=== PATIENT | male | born 1940 | race Caucasian/White ===

== ENCOUNTER 2020-01-05 13:07 | Inpatient (IN) ==
[2020-01-05 13:51] LABS: Hematocrit 36.7 % (42.0-52.0); Hemoglobin 12.6 gm/dL (13.5-18.0); Mean Cell Volume 90.6 fl (78-100); Mean Corpuscular Hemoglobin 31.1 pg (27-31); Mean Corpuscular Hgb Conc 34.3 g/dl (32-36); Mean Platelet Volume 9.8 fl (8-11.3); Neutrophil # 3.8 K/mm3 (1.3-6.0); Platelet Count 157 K/mm3 (150-450); Red Blood Count 4.05 M/mm3 (4.7-6.0); Red Cell Distribution Width 13.2 % (11.5-14.0); White Blood Count 6.8 K/mm3 (4.0-10.5)
[2020-01-05 14:03] LABS: Prothrombin Time (Patient) 11.1 Seconds (9.1-10.7)
--- NOTE | 2020-01-05 14:03 | ERNOTE ---
Neuro HPI ER Record Presenting Symptoms: impaired speech Time Seen by Provider: 01/05/20 13:28 Source: family Exam Limitations: clinical condition Immunizations: IMMUNIZATION HX Immunizations Up to Date Yes History of Influenza Vaccine No Hx Pneumococcal Vaccination No Allergies/Adverse Reactions: Allergies Allergy/AdvReac Type Severity Reaction Status Date / Time No Known Allergies Allergy Verified 12/22/19 14:07 Home Medications: HOME MEDICATIONS aspirin 81 mg tablet,delayed release 81 mg PO DAILY 02/18/18 [Last Taken Unknown] blood-glucose meter, drum-type See Dose Instructions .ROUTE .MEDSUPPLY #1 ea 09/17/18 [Last Taken Unknown] atenolol 50 mg tablet 50 mg PO BID #180 tab 07/09/19 [Last Taken Unknown] atorvastatin 40 mg tablet 40 mg PO HS #90 tab 07/09/19 [Last Taken Unknown] blood sugar diagnostic, drum See Dose Instructions .ROUTE .MEDSUPPLY #300 ea 07/09/19 [Last Taken Unknown] donepezil 5 mg tablet 5 mg PO HS #90 tab 07/09/19 [Last Taken Unknown] glimepiride 4 mg tablet 4 mg PO BID #180 tab 07/09/19 [Last Taken Unknown] hydrochlorothiazide 12.5 mg tablet 12.5 mg PO QAM #90 tab 07/09/19 [Last Taken Unknown] losartan 100 mg tablet 100 mg PO HS #90 tab 07/09/19 [Last Taken Unknown] triamcinolone acetonide 0.1 % topical cream 1 applic TP BID #80 g 07/09/19 [Last Taken Unknown] warfarin 4 mg tablet 8 mg PO .COMPLEX #180 tab 07/09/19 [Last Taken Unknown] Durable Medical Equipment See Rx Instructions .ROUTE .MEDSUPPLY #1 ea 07/16/19 [Last Taken Unknown] polyethylene glycol 3350 17 gram/dose oral powder 17 g PO DAILY #255 g 07/30/19 [Last Taken Unknown] metformin 1,000 mg tablet 1,000 mg PO BID #180 tab 08/13/19 [Last Taken Unknown] amlodipine 5 mg tablet 5 mg PO DAILY 08/31/19 [Last Taken Unknown] lancets See Rx Instructions .ROUTE .COMPLEX #100 ea 10/05/19 [Last Taken Unknown] blood sugar diagnostic See Rx Instructions .ROUTE .MEDSUPPLY #50 ea 11/24/19 [Last Taken Unknown] - History of Present Illness Narrative: Patient is coming to the ER for possible stroke. History is obtained from his . She states that he last was in his normal state last night before they went to bed. This morning he got up around 1030 (which is late for him), he was trying to check his blood sugar which is his normal routine and was unable to handle his glucometer, when he tried to write in his book where he usually noted his blood pressure he only gets on some scribbles. He laid down again and when he got up his noticed that his speech was garbled and brought him to the ER by private. She is not aware of any numbness. He has a history of atrial fibrillation, has recently been seen for fatigue and had a stress test done yesterday. Onset: cannot confirm onset - Character of Deficits Additional Deficits: Present: impaired speech Baseline Cognition: Present: alert, oriented x 4 Baseline Gait: Present: walks w/o assistance Associated Symptoms: Denies: fever/chills Prior Treament: Reports: recently seen. Denies: similar symptoms before Review of Systems - Narrative Narrative: Limited by difficulty speaking Medical History (Last Reviewed 01/05/20 @ 18:00 by Lisa Arias MD) Weight loss (Acute) He has lost 10 pounds in the last 11 days. He reports that he is eating fairly good but his says he is not eating well. Weakness (Acute) Fatigue (Acute) Acutely worse at least. Onychomycosis (Chronic) Insomnia (Chronic) Cutaneous candidiasis (Chronic) Constipation due to slow transit (Chronic) History of pneumonia as indication for 23-polyvalent pneumococcal polysaccharide vaccine (Acute) Refused influenza vaccine (Acute) Nausea and vomiting (Acute) Major depression (Chronic) Sleep behavior disorder, REM (Chronic) Alzheimer's dementia, late onset (Chronic) Atrial fibrillation (Chronic) Hypertension (Chronic) Hyperlipidemia due to dietary fat intake (Chronic) Onset Date: Unknown Diabetes mellitus (Chronic) Onset Date: 1995 History of kidney stones Onset Date: Unknown Surgical History: Surgical History (Last Reviewed 01/05/20 @ 18:00 by Lisa Arias MD) Hx of colonoscopy Onset Date: 08/31/162012; Recheck in 10 years. 08/31/[id number] Hx of hernia repair Onset Date: 1989 right inguinal history of kidney stone removal Onset Date: Unknown Family History: Family History (Last Reviewed 01/05/20 @ 13:24 by Princess King RN) Mother , age 77-cancer unknown type Diabetes Cancer unsure of type Brother , age 70's-[place] Diabetes Myocardial infarction Sister , age 60 Diabetes Sister , age 65-lung ca w/mets to brain Cancer lung, brain Brother , age 69-lung Cancer lung Father , age 62-unsure of cause Cancer unknown type-possible lung (had part of lung removed) Alcohol abuse COPD (chronic obstructive pulmonary disease) Brother , as No problems noted. Sister Heart disease Social History: (Last Reviewed 01/05/20 @ 13:24 by Princess King RN) Social History: Marital status: household members: spouse number of children: 3 current occupational status: retired Service: No Tobacco: Smoking Status: Never smoker Alcohol: alcohol intake: former Substance Use: substance use type: does not use Dietary Habits: caffeine: Yes Exercise: Physical activity type: walking Personal Safety: victim of physical abuse: No victim of emotional abuse: No Physical Exam - Physical Exam General Appearance: Present: wd/wn, alert, no apparent distress, anxious Head Exam: Present: normal inspection, no evidence of injury Eye Exam: Normal inspection: bilateral, PERRL: bilateral, EOMI: bilateral Ears, Nose, Throat: Present: normal pharynx Respiratory: Present: no respiratory distress, normal breath sounds, no accessory muscle use, lungs clear Cardiovascular/Chest: Present: regular rate, rhythm, no murmur Gastrointestinal/Abdominal: Present: nontender, nondistended, soft Extremity Exam: Present: no edema Neurological Exam: Present: alert, no motor/sensory deficits, other - 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 Absent: facial droop Skin Exam: Present: normal color, warm/dry [place] Coma Scale - Assess Eye Opening: Spontaneous Motor: Obeys Commands Verbal: Confused - Total Coma Scale Total: 14 Initial Stroke Assessment - NIH Stroke Scale Level of Consciousness: Alert LOC Commands (open/close eyes/fist): Performs one correctly Lateral Gaze Paresis: None Facial Palsy: Normal movement Right Arm Motor (10 sec hold): No drift Left Arm Motor (10 sec hold): No drift Right Leg Motor (5 sec hold): Drift Left Leg Motor (5 sec hold): No drift Sensory Loss (pinprick arms/legs/face): No sensory loss Dysarthria (speech clarity): Normal articulation Progress - Results and Orders Patient's Lab Results:: I have reviewed the patient's lab results. - Vital Signs Patient's Vital Signs:: I have reviewed the patient's vital signs. Vital Signs: Vital Signs 01/05/20 13:18 Temperature 36.6 C Pulse Rate 57 L Respiratory Rate 14 Blood Pressure 166/82 H O2 Sat by Pulse Oximetry 100 - EKG EKG #1 EKG: atrial fibrillation - HR 70, RBBB - incomplete, no ST T wave changes EKG read: Interp. by me - X-Ray X-Ray #1 X-Ray: chest - no acute changes Interpretation: Reviewed by me - CT/Ultrasound CT/Ultrasound Narrative: CT head: subacute stroke - Progress/Reassessment Chief Complaint: Altered Mental Status Progress Note-Subjective: 01/05/20 13:[address] with radiologist 01/05/20 13: [address] results with 01/05/20 14:57 unchanged aphasia discussed results with offered admission here vs transfer to [facility], will discuss with family 01/05/20 15:15 would like patient admitted here 01/05/20 15:[address] Cotton, agrees to admit admit here, would like me to call stroke center fist to make sure they don't have anything else to add 01/05/20 15:35 call to [facility], 01/05/20 15:48 discussed with stroke team, attending Dr Allan, at this point they don't think they have anything to add but will review images and call back 01/05/20 16:47 call to [facility], just receiving images now 01/05/20 17:[address] Allan with the stroke team, as it is a big infarct he doesn't qualify for any studies, no added benefit from transfer, they are happy to help if there are any complications or increased swelling from edema 01/05/20 17:[address] Cotton, okay to admit here Departure Clinical Impression: CVA (cerebral vascular accident) Qualifiers: CVA mechanism: embolism Precerebral and cerebral artery: middle cerebral artery Laterality of affected vessel: left Qualified Code(s): I63.412 - Cerebral infarction due to embolism of left middle cerebral artery - Departure Disposition: Still a patient Condition: Stable
[2020-01-05 14:04] LABS: INR 1.13 INR (0.92-1.08)
[2020-01-05 14:07] LABS: Albumin * 3.8 gm/dl (3.4-5.0); Anion Gap 11.1 mmol/L (6.8-13.8); Bilirubin, Total 0.5 mg/dL (0.0-1.1); Ca. Corrected For Albumin 8.7 mg/dL (8.4-10.2); Calcium * 8.9 mg/dL (7.9-10.9); Carbon Dioxide 26.2 mmol/L (24-32.6); Potassium 4.3 mmol/L (3.4-4.6); Total Protein 7.5 gm/dL (6.2-8.2)
[2020-01-05] MEDS ORDERED: NORMAL SALINE 1,000 ML IV ONE (17:56)
[2020-01-05 19:41] LABS: Hematocrit 36.3 % (42.0-52.0); Hemoglobin 12.5 gm/dL (13.5-18.0); Mean Cell Volume 90.5 fl (78-100); Mean Corpuscular Hemoglobin 31.2 pg (27-31); Mean Corpuscular Hgb Conc 34.4 g/dl (32-36); Mean Platelet Volume 9.8 fl (8-11.3); Neutrophil # 4.2 K/mm3 (1.3-6.0); Neutrophil % 56.2 % (42-75.0); Platelet Count 160 K/mm3 (150-450); Red Blood Count 4.01 M/mm3 (4.7-6.0); Red Cell Distribution Width 13.1 % (11.5-14.0); White Blood Count 7.5 K/mm3 (4.0-10.5)
--- NOTE | 2020-01-05 19:43 | HP ---
Chief Complaint - Chief Complaint Date of Service: 01/05/20 Time of Service: 19:00 Chief Complaint: Acute stroke. Expressive aphasia partial History of Present Illness: Pablo Mustafa is a 79-year-old white male who is well-known to me as a patient I follow in the clinic. He has a longstanding history of type 2 diabetes, essential hypertension, and atrial fibrillation. Recently he has been complaining of extreme fatigue and I have been doing a cardiovascular evaluation on him. He had a 24-hour Holter monitor which shows atrial fibrillation but with pauses of about 2.4 seconds. He also had an episode of ischemia with ST depression that later resolved. He had a nuclear exercise stress test done yesterday. There is no evidence of myocardial ischemia and no filling defects. He also suffers from major depressive disorder. 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 Last night about 11:00 was the last time he was normal. His did not discover the problems until this morning when he was having difficulty speaking and had some staggering in his gait. She brought him to the hospital where he was evaluated in the emergency room. CT shows a fairly large lacunar infarct. He had garbled speech in the ER and it was moving all extremities. He had some mild weakness on the left side. He has been therapeutic on his Coumadin and 2 weeks ago was INR was 2.68. In the emergency room today however it is 1.13. He was also taking a baby aspirin each day. Why is suddenly being subtherapeutic this degree is unknown at this time. On my exam this evening he recognized me and his speech was intelligible and appropriate. I did not ask him to originate any conversation but answers simple questions appropriately. I spent an hour reviewing the research and subtherapeutic strokes and current management therapies. There is a wide diversity of opinion but what seems consistent is that early anticoagulation therapy using low molecular weight heparin or enoxaparin does not decrease the risk of another stroke but it does increase the risk of intracranial hemorrhage. On the other hand in atrial for patient's warfarin is highly recommended early and return to therapeutic levels as soon as possible. He did get 1 dose of 40 mg enoxaparin but I have discontinued it. We will recheck his INR daily. I have orders for physical, occupational, and speech therapy tomorrow. We did contact the stroke team at the [facility] and because of the size of the embolic stroke and already being visible on CT scan it is thought to be 6 to 12 hours and they had nothing else to offer. Interventional neuroradiology and TPA are now contraindicated both because of time and having been anticoagulated on warfarin. He will be admitted and allowed to evolve his stroke. We will do neuro checks frequently. I will start him back on full liquids and if he tolerates that well then progressed to regular food. Medical History (Last Reviewed 01/05/20 @ 18:00 by Lisa Arias MD) Weight loss (Acute) He has lost 10 pounds in the last 11 days. He reports that he is eating fairly good but his says he is not eating well. Weakness (Acute) Fatigue (Acute) Acutely worse at least. Onychomycosis (Chronic) Insomnia (Chronic) Cutaneous candidiasis (Chronic) Constipation due to slow transit (Chronic) History of pneumonia as indication for 23-polyvalent pneumococcal polysaccharide vaccine (Acute) Refused influenza vaccine (Acute) Nausea and vomiting (Acute) Major depression (Chronic) Sleep behavior disorder, REM (Chronic) Alzheimer's dementia, late onset (Chronic) Atrial fibrillation (Chronic) Hypertension (Chronic) Hyperlipidemia due to dietary fat intake (Chronic) Onset Date: Unknown Diabetes mellitus (Chronic) Onset Date: 1995 History of kidney stones Onset Date: Unknown Surgical History: Surgical History (Last Reviewed 01/05/20 @ 18:00 by Lisa Arias MD) Hx of colonoscopy Onset Date: 08/31/162012; Recheck in 10 years. 08/31/[id number] Hx of hernia repair Onset Date: 1989 right inguinal history of kidney stone removal Onset Date: Unknown Family History: Family History (Last Reviewed 01/05/20 @ 13:24 by Princess King RN) Mother , age 77-cancer unknown type Diabetes Cancer unsure of type Brother , age 70's-[place] Diabetes Myocardial infarction Sister , age 60 Diabetes Sister , age 65-lung ca w/mets to brain Cancer lung, brain Brother , age 69-lung Cancer lung Father , age 62-unsure of cause Cancer unknown type-possible lung (had part of lung removed) Alcohol abuse COPD (chronic obstructive pulmonary disease) Brother , as No problems noted. Sister Heart disease Social History: (Last Reviewed 01/05/20 @ 13:24 by Princess King RN) Social History: Marital status: household members: spouse number of children: 3 current occupational status: retired Service: No Tobacco: Smoking Status: Never smoker Alcohol: alcohol intake: former Substance Use: substance use type: does not use Dietary Habits: caffeine: Yes Exercise: Physical activity type: walking Personal Safety: victim of physical abuse: No victim of emotional abuse: No Review Of Systems (GEN) - Review of Systems Generalized/Overall Review: Present: Weakness EENTM: Present: No Symptoms Reported Respiratory: Present: No Symptoms Reported Cardiac: Present: Palpitations Abdominal: Present: No Symptoms Reported Genitourinary: Present: No Symptoms Reported Musculoskeletal: Present: No Symptoms Reported Neurological: Present: Depressed, Emotional Problems, Weakness, Other - Expressive aphasia and strokelike symptoms Skin: Present: No Symptoms Reported Endocrine: Present: No Symptoms Reported Immunizations: IMMUNIZATION HX Immunizations Up to Date Yes History of Influenza Vaccine No Hx Pneumococcal Vaccination No Allergies/Adverse Reactions: Allergies Allergy/AdvReac Type Severity Reaction Status Date / Time No Known Allergies Allergy Verified 12/22/19 14:07 Home Medications: HOME MEDICATIONS aspirin 81 mg tablet,delayed release 81 mg PO DAILY 02/18/18 [Last Taken Unknown] blood-glucose meter, drum-type See Dose Instructions .ROUTE .MEDSUPPLY #1 ea 09/17/18 [Last Taken Unknown] atenolol 50 mg tablet 50 mg PO BID #180 tab 07/09/19 [Last Taken Unknown] atorvastatin 40 mg tablet 40 mg PO HS #90 tab 07/09/19 [Last Taken Unknown] blood sugar diagnostic, drum See Dose Instructions .ROUTE .MEDSUPPLY #300 ea 07/09/19 [Last Taken Unknown] donepezil 5 mg tablet 5 mg PO HS #90 tab 07/09/19 [Last Taken Unknown] glimepiride 4 mg tablet 4 mg PO BID #180 tab 07/09/19 [Last Taken Unknown] hydrochlorothiazide 12.5 mg tablet 12.5 mg PO QAM #90 tab 07/09/19 [Last Taken Unknown] losartan 100 mg tablet 100 mg PO HS #90 tab 07/09/19 [Last Taken Unknown] triamcinolone acetonide 0.1 % topical cream 1 applic TP BID #80 g 07/09/19 [Last Taken Unknown] warfarin 4 mg tablet 8 mg PO .COMPLEX #180 tab 07/09/19 [Last Taken Unknown] Durable Medical Equipment See Rx Instructions .ROUTE .MEDSUPPLY #1 ea 07/16/19 [Last Taken Unknown] polyethylene glycol 3350 17 gram/dose oral powder 17 g PO DAILY #255 g 07/30/19 [Last Taken Unknown] metformin 1,000 mg tablet 1,000 mg PO BID #180 tab 08/13/19 [Last Taken Unknown] amlodipine 5 mg tablet 5 mg PO DAILY 08/31/19 [Last Taken Unknown] lancets See Rx Instructions .ROUTE .COMPLEX #100 ea 10/05/19 [Last Taken Unknown] blood sugar diagnostic See Rx Instructions .ROUTE .MEDSUPPLY #50 ea 11/24/19 [Last Taken Unknown] Exam - Exam Vital Signs: Vital Signs - Last Taken Temp 36.6 C 01/05/20 13:18 Pulse 68 01/05/20 18:00 Resp 16 01/05/20 18:00 BP 155/71 H 01/05/20 18:00 Pulse Ox 96 01/05/20 18:00 Constitutional: Present: Alert, Oriented x3, Cooperative, Well developed, Well nourished, Mild distress, Elderly ENT Exam: Present: normal ENT inspection, hearing grossly normal, pharynx normal, TMs normal Eye Exam: bilateral eye: normal inspection, PERRL, EOMI Neck: Present: non-tender, full range of motion, supple, normal inspection Back Exam: Present: normal inspection, no CVA tenderness, no vertebral tenderness Breasts: Present: Exam deferred Respiratory: Present: chest non-tender, lungs clear, normal breath sounds, no respiratory distress, no accessory muscle use Cardiovascular/Chest: Present: normal peripheral pulses, irregularly irregular Peripheral Pulses: carotid (R): 2+, carotid (L): 2+, radial (R): 2+, radial (L): 2+ Abdomen: Present: Normal bowel sounds, soft, nontender, nondistended, no rebound tenderness, no hepatospenomegaly, no masses /Rectal: Present: Exam deferred Extremity: Present: normal range of motion, non-tender, normal inspection, no pedal edema, no calf tenderness, normal capillary refill Skin Exam: Present: normal color, warm/dry, no cyanosis Lymphatic: Present: no adenopathy 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, normal cerebellar test, no motor/sensory deficits, alert, normal mood/affect, oriented x 3 Appearance: Present: appropriate appearance, appropriate insight, neat, no memory impairment Eye contact: Present: cooperative, good eye contact, normal speech Thoughts: Present: normal thought pattern, no apparent hallucination Diagnostic Studies: Abnormal Lab Results 01/05/20 01/05/20 01/05/20 Range/Units 13:46 13:46 13:46 RBC 4.05 L (4.7-6.0) M/mm3 Hgb 12.6 L (13.5-18.0) gm/dL Hct 36.7 L (42.0-52.0) % MCH 31.1 H (27-31) pg ESR 25 H (0-10) mm/hr PT 11.1 H (9.1-10.7) Seconds INR (Anticoag Therapy) 1.13 H (0.92-1.08) INR BUN (6-23) mg/dL Creatinine (0.4-1.4) mg/dL Est GFR (Non-Af Amer) (60-130) mL/min Random Glucose (70-110) mg/dL 01/05/20 Range/Units 13:46 RBC (4.7-6.0) M/mm3 Hgb (13.5-18.0) gm/dL Hct (42.0-52.0) % MCH (27-31) pg ESR (0-10) mm/hr PT (9.1-10.7) Seconds INR (Anticoag Therapy) (0.92-1.08) INR BUN 27 H (6-23) mg/dL Creatinine 1.50 H (0.4-1.4) mg/dL Est GFR (Non-Af Amer) 48 L (60-130) mL/min Random Glucose 148 H (70-110) mg/dL Laboratory Results WBC 6.8 K/mm3 (4.0-10.5) 01/05/20 13:46 RBC 4.05 M/mm3 (4.7-6.0) L 01/05/20 13:46 Hgb 12.6 gm/dL (13.5-18.0) L 01/05/20 13:46 Hct 36.7 % (42.0-52.0) L 01/05/20 13:46 MCV 90.6 fl (78-100) 01/05/20 13:46 MCH 31.1 pg (27-31) H 01/05/20 13:46 MCHC 34.3 g/dl (32-36) 01/05/20 13:46 RDW 13.2 % (11.5-14.0) 01/05/20 13:46 Plt Count 157 K/mm3 (150-450) 01/05/20 13:46 MPV 9.8 fl (8-11.3) 01/05/20 13:46 Immature Gran % (Auto) 0.10 % (0.001-0.429) 01/05/20 13:46 Immature Gran # (Auto) 0.01 K/mm3 (0.000-0.0310) 01/05/20 13:46 Neutrophils % 55.0 % (42-75.0) 01/05/20 13:46 Lymphocytes % 34.0 % (20-51) 01/05/20 13:46 Monocytes % 8.6 % (0.0-9) 01/05/20 13:46 Eosinophils % 1.6 % (0.0-3.0) 01/05/20 13:46 Basophils % 0.7 % (0.0-1.0) 01/05/20 13:46 Nucleated RBC % 0.0 k/mm3 (0-1) 01/05/20 13:46 Neutrophils # 3.8 K/mm3 (1.3-6.0) 01/05/20 13:46 Lymphocytes # 2.32 k/mm3 (1.5-3.5) 01/05/20 13:46 Monocytes # 0.6 k/mm3 (0.0-1.0) 01/05/20 13:46 Eosinophils # 0.1 k/mm3 (0.0-0.7) 01/05/20 13:46 Absolute Basophils 0.1 k/mm3 (0.0-0.1) 01/05/20 13:46 ESR 25 mm/hr (0-10) H 01/05/20 13:46 PT 11.1 Seconds (9.1-10.7) H 01/05/20 13:46 INR (Anticoag Therapy) 1.13 INR (0.92-1.08) H 01/05/20 13:46 PTT (Sadie) 26.0 Seconds (24-32) 01/05/20 13:46 Sodium 138 mmol/L (132-142) 01/05/20 13:46 Plasma Sodium 139 mmol/L (130-142) 01/05/20 13:46 Potassium 4.3 mmol/L (3.4-4.6) 01/05/20 13:46 Chloride 105 mmol/L (97-106) 01/05/20 13:46 Carbon Dioxide 26.2 mmol/L (24-32.6) 01/05/20 13:46 Anion Gap 11.1 mmol/L (6.8-13.8) 01/05/20 13:46 BUN 27 mg/dL (6-23) H 01/05/20 13:46 Creatinine 1.50 mg/dL (0.4-1.4) H 01/05/20 13:46 Est GFR (Non-Af Amer) 48 mL/min (60-130) L 01/05/20 13:46 BUN/Creatinine Ratio 18.0 (9.0-21.6) 01/05/20 13:46 Random Glucose 148 mg/dL (70-110) H 01/05/20 13:46 Calcium 8.9 mg/dL (7.9-10.9) 01/05/20 13:46 Calcium Adj for Albumin 8.7 mg/dL (8.4-10.2) 01/05/20 13:46 Total Bilirubin 0.5 mg/dL (0.0-1.1) 01/05/20 13:46 AST 21 U/L (0-48) 01/05/20 13:46 ALT 27 U/L (19-67) 01/05/20 13:46 Alkaline Phosphatase 78 U/L (50-170) 01/05/20 13:46 Total Protein 7.5 gm/dL (6.2-8.2) 01/05/20 13:46 Albumin 3.8 gm/dl (3.4-5.0) 01/05/20 13:46 Assessment/Plan - Narrative Narrative: 1. Repeat lab tomorrow morning and daily including INR 2. Echocardiogram tomorrow 3. Carotid Doppler tomorrow 4. Get the INR back to therapeutic range as soon as possible 5. Continue his usual home meds 6. Monitor his blood sugars. - Assessment/Plan (1) History of Coumadin therapy Problem: Acute (2) CVA (cerebral vascular accident) Problem: Acute Qualifiers: CVA mechanism: embolism Precerebral and cerebral artery: middle cerebral artery Laterality of affected vessel: left Qualified Code(s): I63.412 - Cerebral infarction due to embolism of left middle cerebral artery (3) Weakness Problem: Acute (4) Constipation due to slow transit Problem: Chronic (5) Major depression Problem: Chronic Qualifiers: (6) Atrial fibrillation Problem: Chronic Qualifiers: (7) Hypertension Problem: Chronic Qualifiers: (8) Hyperlipidemia due to dietary fat intake Problem: Chronic (9) Diabetes mellitus Problem: Chronic Qualifiers:
[2020-01-05 19:48] LABS: Prothrombin Time (Patient) 11.4 Seconds (9.1-10.7)
[2020-01-05] MEDS ORDERED: ATENOLOL 50 MG TABLET ONE (19:50)
[2020-01-05 19:52] LABS: Albumin * 3.7 gm/dl (3.4-5.0); Anion Gap 12.2 mmol/L (6.8-13.8); BUN/Creatinine Ratio 17.4 (9.0-21.6); Bilirubin, Total 0.7 mg/dL (0.0-1.1); Ca. Corrected For Albumin 8.7 mg/dL (8.4-10.2); Calcium * 8.8 mg/dL (7.9-10.9); Carbon Dioxide 25.7 mmol/L (24-32.6); Potassium 3.9 mmol/L (3.4-4.6); Total Protein 7.2 gm/dL (6.2-8.2)
[2020-01-05 19:53] LABS: INR 1.16 INR (0.92-1.08)
[2020-01-05] MEDS ORDERED: WARFARIN SODIUM 4 MG TABLET PO SCH (20:00)
[2020-01-05] MEDS ORDERED: ENOXAPARIN SODIUM 40 MG/0.4 ML SYRG SC SCH (20:00)
[2020-01-05] MEDS: ATENOLOL 50 MG TABLET PO SCH (20:01)
[2020-01-05] MEDS: LOSARTAN POTASSIUM 50 MG TABLET PO SCH (20:01)
[2020-01-05] MEDS: ROSUVASTATIN CALCIUM 20 MG TABLET PO SCH (20:02)
[2020-01-05] MEDS: GLIMEPIRIDE 4 MG TABLET PO SCH (20:02)
[2020-01-05] MEDS ORDERED: METOPROLOL TARTRATE 1 MG/ML AMPUL IV ONE (21:14)
[2020-01-05] MEDS: ACETAMINOPHEN 500 MG TABLET PO PRN (21:37)
[2020-01-05] MEDS: TRIAMCINOLONE ACETONIDE 15 APPL TUBE TP SCH (21:37)
[2020-01-06 08:30] LABS: Hematocrit 33.7 % (42.0-52.0); Hemoglobin 11.8 gm/dL (13.5-18.0); Mean Cell Volume 90.6 fl (78-100); Mean Corpuscular Hemoglobin 31.7 pg (27-31); Mean Platelet Volume 9.6 fl (8-11.3); Neutrophil % 63.4 % (42-75.0); Platelet Count 143 K/mm3 (150-450); Red Blood Count 3.72 M/mm3 (4.7-6.0); Red Cell Distribution Width 13.2 % (11.5-14.0); White Blood Count 6.3 K/mm3 (4.0-10.5)
--- NOTE | 2020-01-06 08:33 | PN ---
Subjective - Date and Time Seen Date: 01/06/20 Time: 07:55 Subjective Narrative: Pablo Mustafa has had an uneventful night. His blood pressure was high last evening and I gave him 5 mg of metoprolol. His blood pressure during the night was 103 systolic so it really helped. He remains in atrial fibrillation and continues to have pauses. I ordered a PT and INR yesterday thinking it was for this morning but I think it got ran last night so I reordered it for this mo rning. He is still very subtherapeutic at 1.16. This morning he is alert. He follows commands well. I am unable to detect any motor weakness. Physical, occupational, and speech therapies are all to be started this morning. He is able to swallow his medicine well. I will progress his diet to consistent carb. Objective - Review of Systems Generalized/Overall Review: Reports: No Symptoms Reported EENTM: Reports: No Symptoms Reported Respiratory: Reports: No Symptoms Reported Cardiac: Reports: Palpitations Abdominal: Reports: No Symptoms Reported Genitourinary Symptoms: Reports: No Symptoms Reported Musculoskeletal Complaints: Reports: No Symptoms Reported Neurological: Reports: Other - Having expressive aphasia with word salad in speech origination. He answers simple questions appropriately. He follows commands well. It appears his receptive function is intact. Skin: Reports: No Symptoms Reported Endocrine: Reports: No Symptoms Reported Misc: All systems neg except as marked - Vitals Vitals: Last Vital Signs Temp 37.0 C 01/06/20 07:00 Pulse 75 01/06/20 07:00 Resp 14 01/06/20 07:00 BP 154/79 H 01/06/20 07:00 Pulse Ox 98 01/06/20 07:00 - Abnormal Lab Findings Abnormal Lab Findings: Abnormal Lab Results 01/05/20 01/05/20 01/05/20 Range/Units 13:46 13:46 13:46 RBC 4.05 L (4.7-6.0) M/mm3 Hgb 12.6 L (13.5-18.0) gm/dL Hct 36.7 L (42.0-52.0) % MCH 31.1 H (27-31) pg ESR 25 H (0-10) mm/hr PT 11.1 H (9.1-10.7) Seconds INR (Anticoag Therapy) 1.13 H (0.92-1.08) INR BUN (6-23) mg/dL Creatinine (0.4-1.4) mg/dL Est GFR (Non-Af Amer) (60-130) mL/min Random Glucose (70-110) mg/dL 01/05/20 01/05/20 01/05/20 Range/Units 13:46 19:34 19:34 RBC 4.01 L (4.7-6.0) M/mm3 Hgb 12.5 L (13.5-18.0) gm/dL Hct 36.3 L (42.0-52.0) % MCH 31.2 H (27-31) pg ESR (0-10) mm/hr PT 11.4 H (9.1-10.7) Seconds INR (Anticoag Therapy) 1.16 H (0.92-1.08) INR BUN 27 H (6-23) mg/dL Creatinine 1.50 H (0.4-1.4) mg/dL Est GFR (Non-Af Amer) 48 L (60-130) mL/min Random Glucose 148 H (70-110) mg/dL 01/05/20 Range/Units 19:34 RBC (4.7-6.0) M/mm3 Hgb (13.5-18.0) gm/dL Hct (42.0-52.0) % MCH (27-31) pg ESR (0-10) mm/hr PT (9.1-10.7) Seconds INR (Anticoag Therapy) (0.92-1.08) INR BUN 24 H (6-23) mg/dL Creatinine (0.4-1.4) mg/dL Est GFR (Non-Af Amer) 53 L (60-130) mL/min Random Glucose (70-110) mg/dL - EKG/Xray Findings XRAY: CT head Interpretation: Reviewed by me - Exam Constitutional: Present: Alert, Oriented x3, Cooperative, Well developed, Well nourished, No distress, Elderly ENT Exam: Present: normal ENT inspection, hearing grossly normal, pharynx normal, TMs normal Neck: Present: non-tender, full range of motion, supple, normal inspection Breasts: Present: Exam deferred Respiratory: Present: chest non-tender, lungs clear, normal breath sounds, no respiratory distress, no accessory muscle use Cardiovascular/Chest: Present: normal peripheral pulses, no chest tenderness, no edema, no gallop, no JVD, no murmur, no rub, irregularly irregular Abdomen: Present: Normal bowel sounds, soft, nontender, nondistended, no rebound tenderness, no hepatospenomegaly, no masses /Rectal: Present: Exam deferred Extremity: Present: normal range of motion, non-tender, normal inspection, no pedal edema, no calf tenderness, normal capillary refill Skin Exam: Present: normal color, warm/dry, no cyanosis Lymphatic: Present: no adenopathy Neurologic: Present: 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 Absent: facial droop, motor weakness, sensory deficit Eye contact: Present: cooperative, good eye contact. Absent: normal speech - Word salad with speech origination Thoughts: Present: normal thought pattern, no apparent hallucination Assessment/Plan Plan Narrative: Repeat INR now. Coumadin 10 mg daily today and tomorrow and then reassess Begin physical, occupational, and speech therapies today Progress diet to consistent carb - Problems/Diagnosis (1) History of Coumadin therapy Problem: Acute (2) CVA (cerebral vascular accident) Problem: Acute Qualifiers: CVA mechanism: embolism Precerebral and cerebral artery: middle cerebral artery Laterality of affected vessel: left Qualified Code(s): I63.412 - Cerebral infarction due to embolism of left middle cerebral artery (3) Weakness Problem: Acute (4) Constipation due to slow transit Problem: Chronic (5) Major depression Problem: Chronic Qualifiers: Major depression recurrence: recurrent Active/Remission status: currently active Major depression episode severity: moderate Qualified Code(s): F33.1 - Major depressive disorder, recurrent, moderate (6) Atrial fibrillation Problem: Chronic Qualifiers: Atrial fibrillation type: longstanding persistent (7) Hypertension Problem: Chronic Qualifiers: Hypertension type: essential hypertension (8) Hyperlipidemia due to dietary fat intake Problem: Chronic (9) Diabetes mellitus Problem: Chronic Qualifiers: Diabetes mellitus type: type 2 Diabetes mellitus nursing home insulin use: without terminal clerk use Diabetes mellitus complication status: without complication Qualified Code(s): E11.9 - Type 2 diabetes mellitus without complications
[2020-01-06 08:38] LABS: Prothrombin Time (Patient) 12.1 Seconds (9.1-10.7)
[2020-01-06 08:40] LABS: INR 1.23 INR (0.92-1.08)
[2020-01-06 08:47] LABS: Albumin * 3.5 gm/dl (3.4-5.0); Anion Gap 10.5 mmol/L (6.8-13.8); Bilirubin, Total 0.8 mg/dL (0.0-1.1); Ca. Corrected For Albumin 8.7 mg/dL (8.4-10.2); Calcium * 8.6 mg/dL (7.9-10.9); Carbon Dioxide 25.6 mmol/L (24-32.6); Potassium 4.1 mmol/L (3.4-4.6); Total Protein 6.9 gm/dL (6.2-8.2)
[2020-01-06] MEDS: ASPIRIN 81 MG TABLET.DR PO SCH (09:42)
[2020-01-06] MEDS: GLIMEPIRIDE 4 MG TABLET PO SCH ×2 (09:42→16:41)
[2020-01-06] MEDS: ATENOLOL 50 MG TABLET PO SCH ×2 (09:43→21:19)
[2020-01-06] MEDS: TRIAMCINOLONE ACETONIDE 15 APPL TUBE TP SCH ×2 (09:43→21:20)
[2020-01-06] MEDS: HYDROCHLOROTHIAZIDE 12.5 MG CAPSULE PO SCH (09:43)
[2020-01-06] MEDS: amLODIPine BESYLATE 5 MG TABLET PO SCH (09:43)
[2020-01-06] MEDS: POLYETHYLENE GLYCOL 3350 119 GM BTL PO SCH (09:43)
[2020-01-06] MEDS: ACETAMINOPHEN 500 MG TABLET PO PRN (16:40)
[2020-01-06] MEDS: WARFARIN SODIUM 10 MG TABLET PO SCH (16:40)
[2020-01-06] MEDS ORDERED: WARFARIN SODIUM 4 MG TABLET PO SCH (17:00)
[2020-01-06] MEDS: LOSARTAN POTASSIUM 50 MG TABLET PO SCH (21:19)
[2020-01-06] MEDS: ROSUVASTATIN CALCIUM 20 MG TABLET PO SCH (21:20)
[2020-01-07 06:18] LABS: Prothrombin Time (Patient) 13.7 Seconds (9.1-10.7)
[2020-01-07 06:24] LABS: INR 1.4 INR (0.92-1.08)
[2020-01-07] MEDS: amLODIPine BESYLATE 5 MG TABLET PO SCH (08:35)
[2020-01-07] MEDS: ASPIRIN 81 MG TABLET.DR PO SCH (08:35)
[2020-01-07] MEDS: HYDROCHLOROTHIAZIDE 12.5 MG CAPSULE PO SCH (08:35)
[2020-01-07] MEDS: ATENOLOL 50 MG TABLET PO SCH ×2 (08:35→20:33)
[2020-01-07] MEDS: GLIMEPIRIDE 4 MG TABLET PO SCH ×2 (08:35→16:36)
[2020-01-07] MEDS: TRIAMCINOLONE ACETONIDE 15 APPL TUBE TP SCH ×2 (08:36→20:33)
[2020-01-07] MEDS ORDERED: POLYETHYLENE GLYCOL 3350 17 GM PACKET PO ONE (08:41)
[2020-01-07] MEDS: POLYETHYLENE GLYCOL 3350 119 GM BTL PO SCH (08:42)
[2020-01-07] MEDS: WARFARIN SODIUM 10 MG TABLET PO SCH (16:36)
--- NOTE | 2020-01-07 18:37 | PN ---
Subjective - Date and Time Seen Date: 01/07/20 Time: 07:30 Subjective Narrative: Pablo had a restful night and there have been no indications of stroke extension. He continues to have good motor control of both hands legs and feet. The stroke seems to be affecting the Broca's and Warnicke's area and his aphasia is mostly expressive. He is able to follow commands and repeat some things. I had them count to 5 with me 1 number at a time and each number seems to trigger a separate word. (If he says the number for he adds all for all. The words are intelligible. He did initiate one sentence from a asking me "how are you doing this morning" he is eating well. We have made arrangements for him to go to [facility] inpatient rehab. We had hoped that that would happen today but I am informed that it will be tomorrow morning. His blood pressure is much better controlled with all systolics less than 150 today ranging from 135 as a high to 107 is a low. His INR has improved to 1.4 and is up from 1.23 yesterday. He is not on any other anticoagulants. Objective - Review of Systems Generalized/Overall Review: Reports: No Symptoms Reported EENTM: Reports: No Symptoms Reported Respiratory: Reports: No Symptoms Reported Cardiac: Reports: Palpitations Abdominal: Reports: No Symptoms Reported Genitourinary Symptoms: Reports: No Symptoms Reported Musculoskeletal Complaints: Reports: No Symptoms Reported Neurological: Reports: Other - Difficulty originating speech and having word salad Skin: Reports: No Symptoms Reported Endocrine: Reports: No Symptoms Reported - Vitals Vitals: Last Vital Signs Temp 36.5 C 01/07/20 14:20 Pulse 66 01/07/20 15:20 Resp 16 01/07/20 14:20 BP 107/57 01/07/20 14:20 Pulse Ox 100 01/07/20 14:20 - Abnormal Lab Findings Abnormal Lab Findings: Abnormal Lab Results 01/07/20 Range/Units 06:00 PT 13.7 H (9.1-10.7) Seconds INR (Anticoag Therapy) 1.40 H (0.92-1.08) INR - Exam Constitutional: Present: Alert, Oriented x3, Cooperative, Well developed, Well nourished, No distress ENT Exam: Present: normal ENT inspection, hearing grossly normal, pharynx normal, TMs normal Neck: Present: non-tender, full range of motion, supple Breasts: Present: Exam deferred Respiratory: Present: chest non-tender, lungs clear, normal breath sounds Cardiovascular/Chest: Present: normal peripheral pulses, irregularly irregular - With pauses Abdomen: Present: Normal bowel sounds, soft, nontender, nondistended /Rectal: Present: Exam deferred, External genitalia normal Extremity: Present: normal range of motion, non-tender, normal inspection, no pedal edema, no calf tenderness, normal capillary refill Skin Exam: Present: normal color, warm/dry, no cyanosis Lymphatic: Present: no adenopathy Neurologic: Present: no motor/sensory deficits, alert, normal mood/affect, abnormal gait, aphasia - Expressive, depressed affect. Absent: facial droop, motor weakness, sensory deficit, dizzy/light-headedness Appearance: Present: appropriate appearance, appropriate insight, neat, no memory impairment Eye contact: Present: cooperative, good eye contact Thoughts: Present: normal thought pattern, no apparent hallucination Assessment/Plan - Problems/Diagnosis (1) History of Coumadin therapy Problem: Acute (2) CVA (cerebral vascular accident) Problem: Acute Qualifiers: CVA mechanism: embolism Precerebral and cerebral artery: middle cerebral artery Laterality of affected vessel: left Qualified Code(s): I63.412 - Cerebral infarction due to embolism of left middle cerebral artery (3) Weakness Problem: Acute (4) Constipation due to slow transit Problem: Chronic (5) Major depression Problem: Chronic Qualifiers: Major depression recurrence: recurrent Active/Remission status: currently active Major depression episode severity: moderate Qualified Code(s): F33.1 - Major depressive disorder, recurrent, moderate (6) Atrial fibrillation Problem: Chronic Qualifiers: Atrial fibrillation type: longstanding persistent (7) Hypertension Problem: Chronic Qualifiers: Hypertension type: essential hypertension (8) Hyperlipidemia due to dietary fat intake Problem: Chronic (9) Diabetes mellitus Problem: Chronic Qualifiers: Diabetes mellitus type: type 2 Diabetes mellitus skilled nursing insulin use: without quiller tender use Diabetes mellitus complication status: without complication Qualified Code(s): E11.9 - Type 2 diabetes mellitus without complications
[2020-01-07] MEDS: ROSUVASTATIN CALCIUM 20 MG TABLET PO SCH (20:32)
[2020-01-07] MEDS: LOSARTAN POTASSIUM 50 MG TABLET PO SCH (20:33)
[2020-01-08 06:25] LABS: INR 1.52 INR (0.92-1.08); Prothrombin Time (Patient) 14.8 Seconds (9.1-10.7)
--- NOTE | 2020-01-08 08:18 | DS ---
(1) History of Coumadin therapy Problem: Acute (2) CVA (cerebral vascular accident) Problem: Acute Qualifiers: CVA mechanism: embolism Precerebral and cerebral artery: middle cerebral artery Laterality of affected vessel: left Qualified Code(s): I63.412 - Cerebral infarction due to embolism of left middle cerebral artery (3) Weakness Problem: Acute (4) Constipation due to slow transit Problem: Chronic (5) Major depression Problem: Chronic Qualifiers: Major depression recurrence: recurrent Active/Remission status: currently active Major depression episode severity: moderate Qualified Code(s): F33.1 - Major depressive disorder, recurrent, moderate (6) Atrial fibrillation Problem: Chronic Qualifiers: Atrial fibrillation type: longstanding persistent Qualified Code(s): I48.11 - Longstanding persistent atrial fibrillation (7) Hypertension Problem: Chronic Qualifiers: Hypertension type: essential hypertension Qualified Code(s): I10 - Essential (primary) hypertension (8) Hyperlipidemia due to dietary fat intake Problem: Chronic (9) Diabetes mellitus Problem: Chronic Qualifiers: Diabetes mellitus type: type 2 Diabetes mellitus usp insulin use: without continuous churn buttermaker use Diabetes mellitus complication status: without complication Qualified Code(s): E11.9 - Type 2 diabetes mellitus without complications Date of Discharge:: 01/08/20 Hospital Course: Pablo Mustafa is a 79-year-old white male who is well-known to me as a patient I follow in the clinic. He has a longstanding history of type 2 diabetes, essential hypertension, and atrial fibrillation. Recently he has been complaining of extreme fatigue and I have been doing a cardiovascular evaluation on him. He had a 24-hour Holter monitor which shows atrial fibrillation but with pauses of about 2.4 seconds. He also had an episode of ischemia with ST depression that later resolved. He had a nuclear exercise stress test done yesterday. There is no evidence of myocardial ischemia and no filling defects. He also suffers from major depressive disorder. 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 Last night about 11:00 was the last time he was normal. His did not discover the problems until this morning when he was having difficulty speaking and had some staggering in his gait. She brought him to the hospital where he was evaluated in the emergency room. CT shows a fairly large lacunar infarct. He had garbled speech in the ER and it was moving all extremities. He had some mild weakness on the left side. He has been therapeutic on his Coumadin and 2 weeks ago was INR was 2.68. In the emergency room today however it is 1.13. He was also taking a baby aspirin each day. Why is suddenly being subtherapeutic this degree is unknown at this time. On my exam this evening he recognized me and his speech was intelligible and appropriate. I did not ask him to originate any conversation but answers simple questions appropriately. I spent an hour reviewing the research and subtherapeutic strokes and current management therapies. There is a wide diversity of opinion but what seems consistent is that early anticoagulation therapy using low molecular weight heparin or enoxaparin does not decrease the risk of another stroke but it does increase the risk of intracranial hemorrhage. On the other hand in atrial for patient's warfarin is highly recommended early and return to therapeutic levels as soon as possible. He did get 1 dose of 40 mg enoxaparin but I have discontinued it. We will recheck his INR daily. I have orders for physical, occupational, and speech therapy tomorrow. We did contact the stroke team at the [facility] and because of the size of the embolic stroke and already being visible on CT scan it is thought to be 6 to 12 hours and they had nothing else to offer. Interventional neuroradiology and TPA are now contraindicated both because of time and having been anticoagulated on warfarin. He will be admitted and allowed to evolve his stroke. We will do neuro checks frequently. I will start him back on full liquids and if he tolerates that well then progressed to regular food. Miguelito has had an essentially uneventful stay. There is been no evidence of an extension of his stroke. [facility] has accepted him this morning to their inpatient rehab facility. Blood pressure is been very well maintained since increasing his blood pressure medicine. His INR is still correcting and is up to 1.52 this morning. It has been increasing each day. He is usually maintained in a therapeutic range alternating 4 and 8 mg dosing as per the current orders. Procedures Performed: none Results and Findings: Lab Pending Results 01/05/20 13:46: WBC 6.8, RBC 4.05 L, Hgb 12.6 L, Hct 36.7 L, MCV 90.6, MCH 31.1 H, MCHC 34.3, RDW 13.2, Plt Count 157, MPV 9.8, Immature Gran % (Auto) 0.10, Immature Gran # (Auto) 0.01, Neutrophils % 55.0, Lymphocytes % 34.0, Monocytes % 8.6, Eosinophils % 1.6, Basophils % 0.7, Nucleated RBC % 0.0, Neutrophils # 3.8, Lymphocytes # 2.32, Monocytes # 0.6, Eosinophils # 0.1, Absolute Basophils 0.1 01/05/20 13:46: ESR 25 H 01/05/20 13:46: PT 11.1 H, INR (Anticoag Therapy) 1.13 H, PTT (Sadie) 26.0 01/05/20 13:46: Sodium 138, Plasma Sodium 139, Potassium 4.3, Chloride 105, Carbon Dioxide 26.2, Anion Gap 11.1, BUN 27 H, Creatinine 1.50 H, Est GFR (Non- Af Amer) 48 L, BUN/Creatinine Ratio 18.0, Random Glucose 148 H, Calcium 8.9, Calcium Adj for Albumin 8.7, Total Bilirubin 0.5, AST 21, ALT 27, Alkaline Phosphatase 78, Total Protein 7.5, Albumin 3.8 01/05/20 19:34: WBC 7.5, RBC 4.01 L, Hgb 12.5 L, Hct 36.3 L, MCV 90.5, MCH 31.2 H, MCHC 34.4, RDW 13.1, Plt Count 160, MPV 9.8, Immature Gran % (Auto) 0.30, Immature Gran # (Auto) 0.02, Neutrophils % 56.2, Lymphocytes % 33.0, Monocytes % 8.7, Eosinophils % 1.1, Basophils % 0.7, Nucleated RBC % 0.0, Neutrophils # 4.2, Lymphocytes # 2.48, Monocytes # 0.7, Eosinophils # 0.1, Absolute Basophils 0.1 01/05/20 19:34: PT 11.4 H, INR (Anticoag Therapy) 1.16 H 01/05/20 19:34: Sodium 138, Plasma Sodium 138, Potassium 3.9, Chloride 104, Carbon Dioxide 25.7, Anion Gap 12.2, BUN 24 H, Creatinine 1.38, Est GFR (Non-Af Amer) 53 L, BUN/Creatinine Ratio 17.4, Random Glucose 98 D, Calcium 8.8, Calcium Adj for Albumin 8.7, Total Bilirubin 0.7, AST 19, ALT 24, Alkaline Phosphatase 73, Total Protein 7.2, Albumin 3.7 01/06/20 08:20: WBC 6.3, RBC 3.72 L, Hgb 11.8 L, Hct 33.7 L, MCV 90.6, MCH 31.7 H, MCHC 35.0, RDW 13.2, Plt Count 143 L, MPV 9.6, Immature Gran % (Auto) 0.20, Immature Gran # (Auto) 0.01, Neutrophils % 63.4, Lymphocytes % 25.6, Monocytes % 9.1 H, Eosinophils % 1.1, Basophils % 0.6, Nucleated RBC % 0.0, Neutrophils # 4.0, Lymphocytes # 1.61, Monocytes # 0.6, Eosinophils # 0.1, Absolute Basophils 0.0 01/06/20 08:20: Sodium 135, Plasma Sodium 137, Potassium 4.1, Chloride 103, Carbon Dioxide 25.6, Anion Gap 10.5, BUN 20, Creatinine 1.33, Est GFR (Non-Af Amer) 55 L, BUN/Creatinine Ratio 15.0, Random Glucose 230 H D, Calcium 8.6, Calcium Adj for Albumin 8.7, Total Bilirubin 0.8, AST 21, ALT 24, Alkaline Phosphatase 69, Total Protein 6.9, Albumin 3.5 01/06/20 08:20: PT 12.1 H, INR (Anticoag Therapy) 1.23 H 01/07/20 06:00: PT 13.7 H, INR (Anticoag Therapy) 1.40 H 01/08/20 06:16: PT 14.8 H, INR (Anticoag Therapy) 1.52 H Discharge Location: Other - [facility] inpatient [facility] Disposition: Inpatient Rehab Facility Condition: Stable Face to Face Encounter completed per CMS Guidelines: No Discharge Activity: Activity as tolerated Discharge Diet: Consistent carbs Jail Therapy: Physical Therapy, Occupation Therapy, Speech Therapy Referrals: Joe Cotton DO [Primary Care Provider] - Additional Patient Instructions (free text): To [facility] inpatient rehab unit. Complete Home Medications List: Complete Home Medication List: aspirin 81 mg tablet,delayed release 81 mg PO DAILY 02/18/18 blood-glucose meter, drum-type See Dose Instructions .ROUTE .MEDSUPPLY #1 ea 09/17/18 atenolol 50 mg tablet 50 mg PO BID #180 tab 07/09/19 atorvastatin 40 mg tablet 40 mg PO HS #90 tab 07/09/19 blood sugar diagnostic, drum See Dose Instructions .ROUTE .MEDSUPPLY #300 ea 07/09/19 donepezil 5 mg tablet 5 mg PO HS #90 tab 07/09/19 glimepiride 4 mg tablet 4 mg PO BID #180 tab 07/09/19 hydrochlorothiazide 12.5 mg tablet 12.5 mg PO QAM #90 tab 07/09/19 losartan 100 mg tablet 100 mg PO HS #90 tab 07/09/19 triamcinolone acetonide 0.1 % topical cream 1 applic TP BID #80 g 07/09/19 warfarin 4 mg tablet 8 mg PO .COMPLEX #180 tab 07/09/19 Durable Medical Equipment See Rx Instructions .ROUTE .MEDSUPPLY #1 ea 07/16/19 polyethylene glycol 3350 17 gram/dose oral powder 17 g PO DAILY #255 g 07/30/19 metformin 1,000 mg tablet 1,000 mg PO BID #180 tab 08/13/19 amlodipine 5 mg tablet 5 mg PO DAILY 08/31/19 lancets See Rx Instructions .ROUTE .COMPLEX #100 ea 10/05/19 blood sugar diagnostic See Rx Instructions .ROUTE .MEDSUPPLY #50 ea 11/24/19 Forms: Patient Portal Registration
[2020-01-08] MEDS: GLIMEPIRIDE 4 MG TABLET PO SCH (08:32)
[2020-01-08] MEDS: TRIAMCINOLONE ACETONIDE 15 APPL TUBE TP SCH (08:33)
[2020-01-08] MEDS: ATENOLOL 50 MG TABLET PO SCH (08:33)
[2020-01-08] MEDS: HYDROCHLOROTHIAZIDE 12.5 MG CAPSULE PO SCH (08:33)
[2020-01-08] MEDS: amLODIPine BESYLATE 5 MG TABLET PO SCH (08:33)
[2020-01-08] MEDS: ASPIRIN 81 MG TABLET.DR PO SCH (08:33)
[2020-01-08 08:55] VITALS: BP 119/62
[2020-01-08] MEDS ORDERED: POLYETHYLENE GLYCOL 3350 17 GM PACKET PO SCH (09:00)
--- NOTE | 2020-01-08 10:12 | ECHO ---
This report is available in the EMR
== END 2020-01-08 09:15 | disposition short-term general hospital (02) | DRG 65 ==
LOC: ER 13:07 → MS 17:43
PROVIDERS: ADMIT Family Medicine; ATTEND Family Medicine
DX: Z79.01 Long term (current) use of anticoagulants; K59.01 Slow transit constipation; E78.49 Other hyperlipidemia; F02.80 Dementia in other diseases classified elsewhere, unspecified severity, without behavioral disturbance, psychotic disturbance, mood disturbance, and anxiety; I10 Essential (primary) hypertension; R53.1 Weakness; F33.1 Major depressive disorder, recurrent, moderate; G30.1 Alzheimer's disease with late onset; I48.11 Longstanding persistent atrial fibrillation; I63.412 Cerebral infarction due to embolism of left middle cerebral artery; I69.320 Aphasia following cerebral infarction; E11.9 Type 2 diabetes mellitus without complications; Z91.89 Other specified personal risk factors, not elsewhere classified
CPT/HCPCS: 36415; 70450; 71010; 71045; 80053; 85025; 85610; 85652; 85730; 92507; 92523; 93005; 93306; 93880; 97110; 97112; 97116; 97162; 97165; 97530; 97535; 99285